=== PATIENT | female | born 1950 | race Caucasian/White ===

== ENCOUNTER 2023-01-05 07:56 | Day surgery (SDC) | payer OTHER, MEDICARE ==
[~2023-01-05] VITALS: Ht 160 cm; Wt 71.2 kg
[2023-01-05] MEDS ORDERED: ACETAMINOPHEN I.V. 1000 MG 100 ML IV ONE (08:19)
[2023-01-05] MEDS ORDERED: HYDROmorphone 1 MG/ML INJ. CARTRIDGE IVP PRN ×2 (11:15)
[2023-01-05] MEDS ORDERED: LR 1,000 ML IV SCH (11:15)
[2023-01-05] MEDS ORDERED: MEPERIDINE HCL/PF 25 MG/ML DISP.SYRIN IVP PRN (11:15)
[2023-01-05] MEDS ORDERED: LABETALOL 100 MG/ 20ML VIAL IVP PRN (11:15)
[2023-01-05] MEDS ORDERED: hydrALAZINE HCL 20 MG/ML VIAL IVP PRN (11:15)
[2023-01-05] MEDS ORDERED: METOCLOPRAMIDE HCL 10 MG/2 ML VIAL IVP PRN (11:15)
[2023-01-05] MEDS ORDERED: LR 1,000 ML IV.SOLN IV ONE (13:18)
[2023-01-05] MEDS ORDERED: NS IRRIG SOLN 1000 ML IR ONE (13:18)
[2023-01-05] MEDS ORDERED: OXYMETAZOLINE HCL 0.05% NASAL SPRAY NS ONE ×2 (13:18)
[2023-01-05] MEDS ORDERED: ONDANSETRON HCL 4 MG/2 ML VIAL ONE (13:18)
[2023-01-05] MEDS ORDERED: SUGAMMADEX SODIUM 200 MG/2 ML VIAL IV ONE (13:18)
[2023-01-05] MEDS ORDERED: ROCURONIUM BROMIDE 10 MG/ML (ZEMURON) ONE (13:18)
[2023-01-05] MEDS ORDERED: DESFLURANE 15 MIN GAS INH ONE (13:18)
[2023-01-05] MEDS ORDERED: DEXAMETHASONE SOD PHOSPHATE 4 MG/ML VIAL ONE (13:18)
[2023-01-05] MEDS ORDERED: NS 1000 ML IV.SOLN IV ONE (13:18)
[2023-01-05] MEDS ORDERED: EPINEPHrine HCL 1 MG/ML VIAL ONE (13:18)
[2023-01-05] MEDS ORDERED: WATER FOR IRRIGATION,STERILE 1,000 ML IRRIG.SOLN IR ONE (13:18)
[2023-01-05] MEDS ORDERED: LIDOCAINE 2%, 20 ML MDV ONE (13:18)
[2023-01-05] MEDS ORDERED: LIDOCAINE/EPI 1% 1:100000 20 ML VIAL ONE (13:18)
[2023-01-05] MEDS ORDERED: PROPOFOL 200MG/ 20ML VIAL (DIPRIVAN) IV ONE (13:18)
[2023-01-05 15:44] VITALS: BP_SYST 154
== END 2023-01-05 15:25 | disposition home or self-care (01) ==
LOC: SDS 07:56 → SMU 07:56 → SDS 15:25
PROVIDERS: ATTEND Otolaryngology
DX: J34.2 Deviated nasal septum (principal); J34.89 Other specified disorders of nose and nasal sinuses; J32.2 Chronic ethmoidal sinusitis; K21.9 Gastro-esophageal reflux disease without esophagitis; N95.1 Menopausal and female climacteric states; D38.5 Neoplasm of uncertain behavior of other respiratory organs; R35.1 Nocturia; Z79.899 Other long term (current) drug therapy; Z20.822 Contact with and (suspected) exposure to COVID-19
CPT/HCPCS: 30469; 30140; 30520; 31255; 31256; 31298; 88304; 88305; 88311; J3490; J1100; J0171; J2001; J2405; J2704; J7120; J7030; C1726; J0131

== ENCOUNTER 2023-03-14 08:06 | Emergency (ER) | payer OTHER, MEDICARE ==
[~2023-03-14] VITALS: Ht 162.6 cm; Wt 68.0 kg
[2023-03-14 08:23] VITALS: BP_SYST 137; PULSE 74; RESP 18; TEMP 97.9; O2SAT 99
--- NOTE | 2023-03-14 08:27 | NUR ---
Patient to ER bed H1 to gown for evaluation. Side rails up.
--- NOTE | 2023-03-14 08:40 | NUR ---
ER DR. MORENO EXAMINING PT
[2023-03-14] MEDS ORDERED: ALBMDI INH (09:22)
[2023-03-14 09:30] VITALS: BP_SYST 137; PULSE 74; RESP 18; TEMP 97.9; O2SAT 99
--- NOTE | 2023-03-14 09:31 | NUR ---
Patient given written and verbal discharge instructions and verbalizes understanding. ER MD discussed with patient the results and treatment provided. Patient in stable condition. ID arm band removed. Rx of ALBUTEROL given. Patient educated on pain management and to follow up with PMD. Pain Scale 0/10. Opportunity for questions provided and answered. Medication side effect fact sheet provided.
== END 2023-03-14 09:31 | disposition home or self-care (01) ==
LOC: SED 08:06
DX: U07.1 COVID-19 (principal); R06.02 Shortness of breath; R05.9 Cough, unspecified; J02.9 Acute pharyngitis, unspecified; Z79.899 Other long term (current) drug therapy
CPT/HCPCS: 71045; 93005; 99283

== ENCOUNTER 2023-04-23 14:05 | Emergency (ER) | payer OTHER, MEDICARE ==
[~2023-04-23] VITALS: Ht 162.6 cm; Wt 70.8 kg
[~2023-04-23 14:05] MED LIST: ALBMDI INH
[2023-04-23 14:09] VITALS: BP_SYST 150; PULSE 92; RESP 18; TEMP 98.3; O2SAT 98
== END 2023-04-23 16:19 | disposition left against medical advice (07) ==
LOC: SED 14:05
DX: R07.89 Other chest pain (principal); Z53.21 Procedure and treatment not carried out due to patient leaving prior to being seen by health care provider
CPT/HCPCS: 71046-TC; 93005; 99281